=== PATIENT | male | born 1945 ===

== ENCOUNTER 2018-12-19 05:49 | Outpatient (CLI) | payer MEDICARE, MEDICAID ==
[~2018-12-19] VITALS: Ht 170.2 cm; Wt 56.7 kg
[2018-12-19] MEDS ORDERED: SPIR25TA5 PO (11:05)
[2018-12-19] MEDS ORDERED: SACU1TAB PO (11:05)
[2018-12-19] MEDS ORDERED: GABA-490 PO (14:02)
[2018-12-19] MEDS ORDERED: RT-ALBUINH IH (14:02)
[2018-12-19] MEDS ORDERED: CARV3.122 PO (14:02)
[2018-12-19] MEDS ORDERED: LEVO25TA5 PO (14:02)
[2018-12-19] MEDS ORDERED: ICOS1CAP PO (14:02)
[2018-12-19] MEDS ORDERED: ASPI-983 PO (14:02)
[2018-12-19] MEDS ORDERED: FURO20TA4 PO (14:02)
[2018-12-19] MEDS ORDERED: CLOP75TA69 PO (14:02)
[2018-12-19] MEDS ORDERED: NITR0.4T SL (14:02)
[2018-12-19] MEDS ORDERED: ACET325T38 PO (14:02)
[2018-12-19] MEDS ORDERED: CYCL10TA9 PO (14:02)
[2018-12-19] MEDS ORDERED: GUAI-367 PO (14:02)
[2018-12-19] MEDS ORDERED: CHOL10007 PO (14:02)
[2018-12-19] MEDS ORDERED: BISA5TAB8 PO (14:02)
[2018-12-19] MEDS ORDERED: RANI-515 PO (14:06)
[2018-12-19] MEDS ORDERED: OXYC1TAB12 PO (14:06)
[2018-12-19] MEDS ORDERED: PRAV80TA2 PO (14:06)
== END 2018-12-19 13:52 ==
LOC: PREOP 05:49
PROVIDERS: ATTEND Orthopaedic Surgery
DX: Z01.818 Encounter for other preprocedural examination (principal); M48.02 Spinal stenosis, cervical region